=== PATIENT | male | born 1950 | race Caucasian/White ===

== ENCOUNTER 2016-10-18 09:17 | Outpatient (CLI) | payer MEDICARE, OTHER ==
[2014-02-14 15:16] VITALS: BP 102/50
[2016-10-18 10:00] LABS: eGFR (African) > 60; eGFR (Non-African) > 60
== END 2016-10-18 09:20 ==
LOC: LAB 09:17
PROVIDERS: ATTEND Family Medicine
DX: Z00.00 Encounter for general adult medical examination without abnormal findings (principal); E03.9 Hypothyroidism, unspecified; Z11.59 Encounter for screening for other viral diseases
CPT/HCPCS: 36415; 80053; 80061; 84443; 86803

== ENCOUNTER 2017-05-06 14:17 | Outpatient (CLI) | payer MEDICARE, OTHER ==
[2014-02-14 15:16] VITALS: BP 102/50
== END 2017-05-06 14:18 ==
LOC: LAB 14:17
PROVIDERS: ATTEND Family Medicine
DX: E03.9 Hypothyroidism, unspecified (principal)
CPT/HCPCS: 36415; 84443

== ENCOUNTER 2019-07-29 13:13 | Outpatient (CLI) | payer OTHER ==
[2014-02-14 15:16] VITALS: BP 102/50
[2019-07-29 14:02] LABS: eGFR (Non-African) > 60
[2019-07-29 14:47] LABS: NEUTROPHILS # 2.5 # k/uL (1.4-7.7)
[2019-07-29 14:48] LABS: SEGMENTED NEUTROPHILS % 50 % (39-79)
== END 2019-07-29 13:18 ==
LOC: LAB 13:13
PROVIDERS: ATTEND Nurse Practitioner Family
DX: M13.0 Polyarthritis, unspecified (principal); M79.9 Soft tissue disorder, unspecified
CPT/HCPCS: 36415; 80053; 82550; 85025; 85651; 86140; 86431